=== PATIENT | male | born 1965 | race Caucasian/White ===

== ENCOUNTER → 2016-08-26 | Outpatient (REF) | payer BC ==
[~2016-08-26] MED LIST: /WARF5TA PO; ACET-654 PO; AUGM875T27 PO; DOCU10ELUD PO; LOVENOX SUBQ; [UNRECOGNIZED DRUG - OTHER] PO
== END ==
LOC: M LAB REF 12:03
PROVIDERS: ATTEND Family Medicine
DX: E78.5 Hyperlipidemia, unspecified (principal)

== ENCOUNTER → 2017-07-18 | Outpatient (CLI) | payer BC | LOC: M WUC 15:30 | DX: J20.9 Acute bronchitis, unspecified (principal); R12 Heartburn | CPT/HCPCS: 71046 ==

== ENCOUNTER 2017-08-10 10:20 | Day surgery (SDC) | payer BC ==
[~2017-08-10 10:20] MED LIST changes: -/WARF5TA PO; -ACET-654 PO; -AUGM875T27 PO; -DOCU10ELUD PO; +LIDOCAINE 2% MDV 20 ML VIAL As Ordered; -LOVENOX SUBQ; +PROPOFOL 200 MG/20 ML VIAL As Ordered; -[UNRECOGNIZED DRUG - OTHER] PO
[2017-08-10] MEDS: NS 1,000 ML IV (10:30)
== END 2017-08-10 13:20 | disposition home or self-care (01) ==
LOC: M OPP 10:20
DX: Z12.11 Encounter for screening for malignant neoplasm of colon (principal); K57.30 Diverticulosis of large intestine without perforation or abscess without bleeding; Z86.718 Personal history of other venous thrombosis and embolism; Z86.711 Personal history of pulmonary embolism; K21.9 Gastro-esophageal reflux disease without esophagitis; R12 Heartburn; M54.9 Dorsalgia, unspecified; K62.5 Hemorrhage of anus and rectum; N52.9 Male erectile dysfunction, unspecified; E66.9 Obesity, unspecified; Z79.01 Long term (current) use of anticoagulants; Z79.899 Other long term (current) drug therapy; Z87.891 Personal history of nicotine dependence
CPT/HCPCS: G0121

== ENCOUNTER 2017-09-15 06:32 | Day surgery (SDC) | payer BC ==
[2017-09-15] MEDS ORDERED: LIDOCAINE 1% MDV 20ML VIAL SQ (06:45)
[2017-09-15] MEDS: LR 1,000 ML IV (07:07)
[2017-09-15] MEDS ORDERED: PROPOFOL 200 MG/20 ML VIAL As Ordered ×2 (07:17→08:03)
[2017-09-15] MEDS ORDERED: LIDOCAINE 2% INJ 100 MG/5 ML SDV (FOR ANES.) As Ordered (07:17)
[2017-09-15] MEDS ORDERED: MIDAZOLAM INJ 2 MG/2 ML VIAL (J2250) As Ordered (07:18)
[2017-09-15] MEDS ORDERED: fentaNYL 100 MCG/2 ML INJECTION (J3010) As Ordered (07:18)
[2017-09-15] MEDS ORDERED: KETAMINE HCL 200 MG/20 ML VIAL As Ordered (07:29)
[2017-09-15] MEDS: LIDOCAINE 2% MDV 20 ML VIAL As Ordered (07:44)
[2017-09-15] MEDS: BUPIVACAINE HCL 0.5% 30 ML VIAL As Ordered (07:44)
[2017-09-15] MEDS: NEOSPORIN GU IRRIG 20 ML VIAL As Ordered (07:55)
[2017-09-15] MEDS: BACITRACIN PWD 50,000 UNITS VIAL As Ordered (07:55)
[2017-09-15] MEDS ORDERED: ONDANSETRON 4MG/2ML VIAL (J2405) As Ordered (07:55)
[2017-09-15] MEDS: dexameTHASONE 4 MG/ML 1ML VIAL (J1100) As Ordered (08:02)
== END 2017-09-15 09:14 | disposition home or self-care (01) ==
LOC: M SDC 06:32
DX: M72.2 Plantar fascial fibromatosis (principal); E78.5 Hyperlipidemia, unspecified; Z86.711 Personal history of pulmonary embolism; M54.5 Low back pain; G89.29 Other chronic pain; K21.9 Gastro-esophageal reflux disease without esophagitis; Z79.899 Other long term (current) drug therapy; Z79.01 Long term (current) use of anticoagulants; Z91.013 Allergy to seafood
CPT/HCPCS: 29893

== ENCOUNTER → 2018-01-09 | Outpatient (REF) | payer BC ==
[2018-01-10 08:06] LABS: LDL DIRECT 65 mg/dL (0-99)
[2018-01-12 08:06] LABS: MUMPS VIRUS IgG ANTIBODY 73.7 AU/mL (Immune >10.9); RUBEOLA IgG ANTIBODY <25.0 AU/mL (Immune >29.9)
[2018-01-12 08:06] LABS: HERPES ZOSTER, VARICELLA IgG 555 index (Immune >165)
[2018-01-12 10:14] LABS: RUBELLA IgG QUALITATIVE IMMUNE (IMMUNE)
[2018-01-12 10:44] LABS: HEPATITIS B CORE ANTIBODY IGM NEGATIVE (NEGATIVE)
== END ==
LOC: M LAB REF 13:15
DX: E78.5 Hyperlipidemia, unspecified (principal)
CPT/HCPCS: 86762

== ENCOUNTER → 2018-08-30 | Outpatient (CLI) | payer BC ==
[~2018-08-30] MED LIST changes: +/WARF5TA PO; +ACET-654 PO; +AUGM875T27 PO; +DOCU10ELUD PO; +HYDR-3713 PO; -LIDOCAINE 2% MDV 20 ML VIAL As Ordered; +LOVENOX SUBQ; +MULT1TAB10 PO; -PROPOFOL 200 MG/20 ML VIAL As Ordered; +VIAG100T PO; +XARE20TA PO; +[UNRECOGNIZED DRUG - OTHER] PO
--- NOTE | 2018-08-30 14:28 | REP ---
Clinical: Right knee pain Technique: AP, lateral, bilateral oblique and sunrise views. Findings: The osseous structures and joint spaces are intact and essentially normal for age. Very subtle spurring along the contour of the patella best identified on lateral and sunrise views suggests minimal arthritic changes. Small joint effusion cannot be excluded. Surrounding soft tissues are unremarkable. No subcutaneous emphysema or radiodense foreign body. 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 Cannot exclude subtle suprapatellar effusion. Electronically Signed by Gelacio Goodrich MD 08/30/2018 02:18 P
== END ==
LOC: M WUC 13:32
PROVIDERS: ATTEND Physician Assistant
DX: M25.561 Pain in right knee (principal)

== ENCOUNTER → 2018-10-31 | Outpatient (CLI) | payer BC ==
[~2018-10-31] MED LIST changes: -/WARF5TA PO; +COUM1TAB17 PO; -DOCU10ELUD PO; +DOCU5LIQ PO
--- NOTE | 2018-10-31 17:05 | REP ---
Clinical: Cough times 6 weeks . Comparison: 07/18/2017 . Technique: PA and lateral. Findings: The mediastinum and cardiac silhouette are normal. The lung gary are clear and without acute consolidation, effusion, or pneumothorax. The skeletal structures are intact and normal. Impression: 1. No acute cardiopulmonary process. Electronically Signed by Gelacio Goodrich MD 10/31/2018 04:57 P
== END ==
LOC: M WUC 16:40
PROVIDERS: ATTEND Family Medicine
DX: R05 Cough (principal); E78.5 Hyperlipidemia, unspecified; Z86.711 Personal history of pulmonary embolism

== ENCOUNTER → 2021-01-06 | Outpatient (CLI) | payer BC ==
--- NOTE | 2021-01-06 15:37 | REP ---
INDICATION: SHORTNESS OF BREATH. COMPARISON: 10/31/2018 TECHNIQUE: PA and lateral FINDINGS: The superior mediastinal structures are midline. The cardiac silhouette is unremarkable in size, shape, and position. The diaphragmatic surfaces of the lungs are regular, and the costophrenic angles are clear. The pulmonary gary are clear. The imaged osseous structures are intact. IMPRESSION: There is no acute cardiopulmonary disease. <Electronically signed by Christiano Davis > 01/06/21 [id number]
== END ==
LOC: M WUC 14:08
PROVIDERS: ATTEND Physician Assistant Medical
DX: R06.02 Shortness of breath (principal)

== ENCOUNTER → 2022-05-18 | Outpatient (CLI) | payer OTHER ==
[2022-05-18 18:20] LABS: TOTAL PROTEIN 6.8 GM/DL (6.4-8.2)
[2022-05-18 18:22] LABS: RHEUMATOID FACTOR QUANT < 3.5 IU/ML (<14)
[2022-05-18 18:24] LABS: FOLATE 16.3 NG/ML (>5.4); VITAMIN B12 LEVEL 559 PG/ML (211-911)
[2022-05-18 19:11] LABS: HEMOGLOBIN A1c 5.4 % (4.0-6.0)
== END ==
LOC: M PLALAB 15:36
PROVIDERS: ATTEND Psychiatry & Neurology Neurology
DX: E53.8 Deficiency of other specified B group vitamins (principal); E11.42 Type 2 diabetes mellitus with diabetic polyneuropathy; R20.0 Anesthesia of skin

== ENCOUNTER → 2022-06-14 | Outpatient (CLI) | payer OTHER ==
[~2022-06-14] MED LIST changes: +METHACHOLINE KIT INH ONE
== END ==
LOC: M CARPUL 14:44
PROVIDERS: ATTEND Nurse Practitioner Family
DX: R06.02 Shortness of breath (principal); R05.9 Cough, unspecified; Z86.711 Personal history of pulmonary embolism
CPT/HCPCS: 71250; 94070; J7674

== ENCOUNTER → 2022-11-24 | Outpatient (REF) | payer OTHER ==
[~2022-11-24] MED LIST changes: -METHACHOLINE KIT INH ONE
== END ==
LOC: M SFHCADAM 17:03
PROVIDERS: ATTEND Nurse Practitioner Family
DX: Z53.9 Procedure and treatment not carried out, unspecified reason (principal)

== ENCOUNTER → 2023-02-14 | Outpatient (REF) | payer OTHER | LOC: M LAB REF 09:49 | PROVIDERS: ATTEND Family Medicine | DX: E07.9 Disorder of thyroid, unspecified (principal) ==

== ENCOUNTER → 2023-12-22 | Outpatient (REF) | payer OTHER, BC | LOC: M LAB REF 13:05 | PROVIDERS: ATTEND Family Medicine | DX: M79.671 Pain in right foot (principal) ==

== ENCOUNTER → 2024-03-07 | Outpatient (CLI) | payer OTHER, BC | LOC: M WUC 09:01 | PROVIDERS: ATTEND Family Medicine | DX: M79.671 Pain in right foot (principal) ==